=== PATIENT | female | born 1970 | race Two or more races ===

== ENCOUNTER 2018-09-12 16:58 | Emergency (ER) | payer OTHER ==
[~2018-09-12] VITALS: Ht 167.6 cm; Wt 110.5 kg
--- NOTE | 2018-09-12 17:24 | NUR ---
MGLF last night after slipping on bathroom rug. C/O neck pain and lac to posterior head. Placed in C-collar. Will continue to monitor.
--- NOTE | 2018-09-12 17:25 | NUR ---
Patient to CT.
[2018-09-12] MEDS ORDERED: LIDOCAINE 2%, 20ML SQ ONE (17:30)
[2018-09-12 17:32] LABS: MEAN CORPUSCULAR HEMOGLOBIN 30.7 pg (27.0-34.8); MEAN CORPUSCULAR HGB CONC 33.2 g/dL (32.4-35.8); MEAN CORPUSCULAR VOLUME 92.3 fL (80-100); MEAN PLATELET VOLUME 7.2 fL (7.4-10.4); PLATELET COUNT 333 x10^3/uL (130-400); RED BLOOD COUNT 3.52 x10^6/uL (3.82-5.3); RED CELL DISTRIBUTION WIDTH 14.4 % (9.6-15.2)
[2018-09-12 17:42] LABS: ALANINE AMINOTRANSFERASE 39 U/L (12-78); ALBUMIN 3.5 g/dL (3.4-5.0); ANION GAP 11 mmol/L (5-15); CALCIUM 8.5 mg/dL (8.5-10.1); CHLORIDE 103 mmol/L (98-107); CREATININE 0.69 mg/dL (0.55-1.02)
[2018-09-12 17:44] LABS: ALKALINE PHOSPHATASE 87 U/L (45-117); BILIRUBIN,TOTAL 0.3 mg/dL (0.2-1.0); TOTAL PROTEIN 7.4 g/dL (6.4-8.2)
[2018-09-12 17:49] LABS: BASOPHILS # (AUTO) 0.07 x10^3/uL (0-0.1); BASOPHILS % (AUTO) 0 % (0-1); EOSINOPHILS # (AUTO) 0.01 x10^3/uL (0-0.4); EOSINOPHILS % (AUTO) 0 % (1-7); LYMPHOCYTES # (AUTO) 2.87 x10^3/uL (1-3.4); LYMPHOCYTES % (AUTO) 17 % (22-44); MONOCYTES # (AUTO) 0.71 x10^3/uL (0.2-0.8); MONOCYTES % (AUTO) 4 % (2-9); NEUTROPHILS # (AUTO) 13.77 x10^3/uL (1.8-6.8); NEUTROPHILS % (AUTO) 79 % (42-75)
[2018-09-12 17:51] LABS: MD SCAN
--- NOTE | 2018-09-12 18:19 | NUR ---
Ambulated to the restroom with a steady gait.
--- NOTE | 2018-09-12 18:31 | NUR ---
aware of high HR. states is due to her [employer]. She is in town from [place] to see a spcialist for this problem.
--- NOTE | 2018-09-12 18:42 | NUR ---
EDT at bedside cleaning lac.
[2018-09-12] MEDS ORDERED: LIDOCAINE-MPF 1%, 5ML ONE (18:56)
[2018-09-12 18:58] LABS: MICROSCOPIC AUTO
--- NOTE | 2018-09-12 19:08 | NUR ---
Report to ZAINAB Fitzpatrick.
[2018-09-12 19:09] LABS: CULTURE INDICATED? YES
[2018-09-12 19:53] VITALS: BP 49/88
== END 2018-09-12 19:55 | disposition home or self-care (01) ==
LOC: ED 19:44
DX: S01.01XA Laceration without foreign body of scalp, initial encounter (principal); W18.2XXA Fall in (into) shower or empty bathtub, initial encounter; Y93.E1 Activity, personal bathing and showering; Y92.091 Bathroom in other non-institutional residence as the place of occurrence of the external cause; Y99.8 Other external cause status
CPT/HCPCS: 12031; 36415; 70450; 72072; 72125; 80053; 81001; 85025; 87086; 87147; 99284

== ENCOUNTER 2018-09-18 18:14 | Emergency (ER) | payer OTHER ==
[~2018-09-18] VITALS: Ht 167.6 cm; Wt 109.3 kg
[2018-09-18 18:15] VITALS: BP 121/86
--- NOTE | 2018-09-18 18:43 | NUR ---
pt here for staple removal, pt wanted christian removed and was done. 3 christian remove. pt tolerated well. pt did not want to wait for dc instructions and left.
== END 2018-09-18 18:46 | disposition home or self-care (01) ==
LOC: ED 18:15
DX: S01.01XD Laceration without foreign body of scalp, subsequent encounter (principal); X58.XXXD Exposure to other specified factors, subsequent encounter
CPT/HCPCS: 99281; 99282